=== PATIENT | male | born 1975 | race Caucasian/White ===

== ENCOUNTER 2020-08-06 09:05 | Emergency (ER) | payer OTHER, MEDICAID, SELFPAY ==
[2020-08-06 09:23] VITALS: BP 139/81; PULSE 75; RESP 18; TEMP 37.2; O2SAT 99; BMI 26.6
--- NOTE | 2020-08-06 09:35 | ED.GENADULT ---
HPI - General Adult General Chief complaint: Abdominal Pain Stated complaint: Blood in urine/saliva Time Seen by Provider: 08/06/20 09:08 Source: patient Mode of arrival: Ambulatory Limitations: no limitations History of Present Illness HPI narrative: Patient is a 45-year-old male. His transsexual. His postoperative and has had his penis removed. His here for evaluation of several weeks of abdominal discomfort. He states that it is in his upper abdomen although difficult for him to specifically isolate. No change in bowel habits. This morning he had blood tinged in his urine and last evening had blood tinged sputum. Afebrile. Does drink alcohol on a daily basis. Does not use anti-inflammatories. Has no other reflux symptoms. No problems breathing. Related Data Allergies Allergy/AdvReac Type Severity Reaction Status Date / Time No Known Drug Allergies Allergy Verified 08/06/20 09:29 Review of Systems Constitutional Constitutional: Reports system reviewed and no additional complaints, except as documented Cardiovascular Cardiovascular: Reports system reviewed and no additional complaints, except as documented Respiratory Respiratory: Reports system reviewed and no additional complaints, except as documented Gastrointestinal Gastrointestinal: Reports abdominal pain Genitourinary Genitourinary: Reports hematuria Genitourinary: Reports hematuria Musculoskeletal Musculoskeletal: Reports system reviewed and no additional complaints, except as documented Integumentary/Breasts Skin/Breast: Reports system reviewed and no additional complaints, except as documented Neurologic Neurologic: Reports system reviewed and no additional complaints, except as documented Hematologic/Lymphatic On Anticoagulants: No Allergic/Immunologic Allergic/Immunologic: Reports system reviewed and no additional complaints, except as documented Patient History Social History Smoking Status: Never smoker Smoking Status: Never smoker Substance Use Type: does not use Exam Initial Vital Signs Initial Vital Signs: Vital Signs Temperature 99 F 08/06/20 09:23 Pulse Rate 75 08/06/20 09:23 Respiratory Rate 18 08/06/20 09:23 Blood Pressure 139/81 08/06/20 09:23 Pulse Oximetry 99 08/06/20 09:23 Const General: cooperative and comfortable Limitations: mental status not altered HENMT Head: normal to inspection and normocephalic Resp Effort & Inspection: normal respiratory effort Auscultation: clear to auscultation bilaterally Cardio Rate: regular rate Rhythm: regular rhythm GI Inspection: non-distended Palpation: soft, No firm and No tender Skin Lesions: no lesions Rashes: no rashes Neuro General: patient alert and patient awake Cognition: normal cognition Speech: speech normal Extrem General: normal to inspection and capillary refill normal Psych Appearance: grossly normal and well kempt Course Vital Signs Vital signs: Vital Signs - 8 hr 08/06/20 09:23 Temperature 99 F Pulse Rate 75 Respiratory Rate 18 Blood Pressure 139/81 Pulse Oximetry 99 Medical Decision Making Lab Data Lab results reviewed: Yes I reviewed the patient's lab results. Labs: Urine Dip Bedside Urine Glucose Negative Bedside Urine Bilirubin - Negative Bedside Urine Ketone - Negative Urine Specific [place] 1.025 Bedside Urine Occult Blood - Negative Bedside Urine pH 6.0 Bedside Urine Protein - Negative Bedside Urine Urobilinogen - Negative Bedside Urine Nitrite - Negative Bedside Urine Leukocytes - Negative Esterase Point of care testing: Urine Dip Bedside Urine Glucose Negative Bedside Urine Bilirubin - Negative Bedside Urine Ketone - Negative Urine Specific [place] 1.025 Bedside Urine Occult Blood - Negative Bedside Urine pH 6.0 Bedside Urine Protein - Negative Bedside Urine Urobilinogen - Negative Bedside Urine Nitrite - Negative Bedside Urine Leukocytes - Negative Esterase ECG Data Interpretation: MDM Narrative Medical decision making narrative: Well-appearing, reassuring exam and vital signs. Urinalysis shows no signs of blood. No signs of infection, no indication for antibiotics. There is no signs of any respiratory distress. I feel we can hold on any radiologic studies for now. Tried to provide reassurance. Patient was given return precautions. Patient expressed understanding and agreement. Discharge Plan Departure Patient Disposition: Home Clinical Impression: Hematuria Instructions: DI for Hematuria Activity Restrictions/Additional Instructions: There were no signs of any blood in your urine sample today. There is no signs of any infection. There is no indication for any antibiotics. I recommend that you start on a medicine called famotidine/Pepcid. I suspect that the blood in her saliva could be related to a stomach ulcer. This could be the result of your daily drinking. Recommend that you contact your primary provider for follow-up. Return to the emergency department for any new or worsening symptoms
--- NOTE | 2020-08-06 10:25 | PC.NURSE ---
pt refused to allow examination by staff psychiatrist. refused discharge vitals.
== END 2020-08-06 10:26 | disposition home or self-care (01) ==
PROVIDERS: Emergency Provider Emergency Medicine
DX: R31.9 Hematuria, unspecified (principal); R10.9 Unspecified abdominal pain
CPT/HCPCS: 81003; 99281; 99282

== ENCOUNTER 2020-08-07 09:22 | Emergency (ER) | payer OTHER, MEDICAID, SELFPAY ==
[2020-08-07 09:32] VITALS: BP 128/87; PULSE 65; RESP 15; TEMP 37.1; O2SAT 100; BMI 26.6
--- NOTE | 2020-08-07 11:00 | ED.ABDPAIN ---
HPI - Abdominal Pain General Chief Complaint: Abdominal Pain Stated Complaint: stomach pain/cant sleep/here yesterday Time Seen by Provider: 08/07/20 10:38 Source: patient and old records reviewed Mode of arrival: Ambulatory Limitations: no limitations History of Present Illness HPI narrative: This is a 45-year-old with preferred pronouns male who comes with complaint of abdominal discomfort sort of mid superior abdomen. Patient states that does symptoms have been there for quite some time they state that they have been tapering down there coughing consumption as well as using Rolaids intermittently. Patient states that was having worse symptoms yesterday was seen. They return today as there symptoms have been worsening overnight they were unable to sleep. Patient denies any fevers or chills. Has had some nausea but no active vomiting. He states that they coughed up some trace redness the other day which encouraged him to come here at that time. They have not had any chest pain or shortness of breath. Patient states that symptoms of abdominal pain do seem to be worsened with certain foods such as chicken which they had last night. They been eating a very bland diet which is been mildly helpful. Patient has had normal bowel movements without any melena or hematochezia. Patient had noted some pinkish discoloration and urine and was seen yesterday with negative urinalysis. Patient denies any frequency, discharge, incomplete emptying or other symptoms. Patient has history surgical removal of penis about 7-8 years ago. No other additional surgeries. Does not take any other daily medications. Does not smoke. Does drink alcohol 2-3 days daily. Denies any substance abuse. Patient does live on [facility]. States they are planning to move to [place] in the next 1/2 to 2 weeks. Related Data Previous Rx's Medication Instructions Recorded sucralfate [Carafate] 1 g PO QACHS #40 tab 08/07/20 Allergies Allergy/AdvReac Type Severity Reaction Status Date / Time No Known Drug Allergies Allergy Verified 08/07/20 09:39 Review of Systems Review of Systems ROS Unobtainable: All systems reviewed & are unremarkable except as noted in HPI and below Patient History Social History Smoking Status: Never smoker Smoking Status: Never smoker alcohol intake frequency: 3 or more drinks per day Substance Use Type: does not use Exam Narrative Exam Narrative: GENERAL: Alert and oriented x three, well-appearing, mild distress. HEENT: Head normocephalic, atraumatic, EOMI, pupils reactive, face symmetric, moist mucous membranes NECK: Supple, full range of motion CARDIOVASCULAR: Regular rate and rhythm without murmurs, rubs or gallops. RESPIRATORY: Breath sounds equal bilaterally, no wheezes rales or rhonchi. ABDOMEN: Soft, patient has some mild to moderate tenderness in the superior midline. There does feel like some fullness but I cannot palpate a discrete hernia. Patient has a very small umbilical hernia on exam but is nontender to palpation. Normoactive bowel sounds all 4 quadrants. No guarding or rebound, rigidity, no mass : No CVA tenderness EXTREMITIES: Normal range of motion, no clubbing or edema. Neurovascularly intact NEUROLOGICAL: Cranial nerves II through XII grossly intact. Moving all extremities SKIN: Warm, dry, no petechiae, no rashes or lesions. Initial Vital Signs Initial Vital Signs: Vital Signs Temperature 98.7 F 08/07/20 09:32 Pulse Rate 65 08/07/20 09:32 Respiratory Rate 15 08/07/20 09:32 Blood Pressure 128/87 08/07/20 09:32 Pulse Oximetry 100 08/07/20 09:32 Course Orders Ordered: ED Orders 08/07/20 10:45 Urinalysis and Microscopic Stat 08/07/20 11:13 US abdomen complete Stat 08/07/20 12:18 Complete Blood Count AUTO DIFF Stat Comprehensive Metabolic Panel Stat Lipase Stat Discontinued Medications Pantoprazole Sodium (Pantoprazole 40 Mg Vial) 40 mg IV NOW ONE Stop: 08/07/20 11:14 Last Admin: 08/07/20 12:12 Dose: Not Given Documented by: [email or web address] Vital Signs Vital signs: Vital Signs - 8 hr 08/07/20 13:07 Pulse Rate 63 Respiratory Rate 16 Blood Pressure 136/92 H Pulse Oximetry 96 MDM - Abdominal Pain Lab Data Attestation: I reviewed the patient's lab results. Result diagrams: 08/07/20 12:18 08/07/20 12:18 Labs: Lab Results 08/07/20 08/07/20 08/07/20 Range/Units 10:45 12:18 12:18 WBC 4.5 (4.5-11.0) X10^3/uL RBC 4.91 (4.5-5.9) X10^6/uL Hgb 14.9 (13.5-17.5) g/dL Hct 42.2 (41-53) % MCV 85.9 (80-100) fL MCH 30.2 (26-34) PG MCHC 35.2 (30-36) % RDW 12.7 (11.6-14.8) % Plt Count 245 (150-400) X10^3/uL Neut % (Auto) 59.1 (50-75) % Lymph % (Auto) 31.6 (25-40) % Piatt % (Auto) 6.2 (3-14) % Eos % (Auto) 2.5 (2-4) % Baso % (Auto) 0.6 (0-2) % Neut # (Auto) 2600 (6456-1308) /uL Lymph # (Auto) 1400 (5851-0427) /uL Piatt # (Auto) 300 (0-900) /uL Eos # (Auto) 100 (0-450) /uL Baso # (Auto) 0 (0-100) /uL Sodium 136 L (137-145) mmol/L Potassium 4.1 (3.4-5.1) mmol/L Chloride 103 (98-107) mmol/L Carbon Dioxide 26 (22-32) mmol/L BUN 15 (9-20) mg/dL Creatinine 0.79 (0.66-1.25) mg/dL Estimated GFR > 60.0 (>60) mL/min BUN/Creatinine Ratio 19.0 (6-22) Glucose 96 (70-100) mg/dL Calcium 9.7 (8.4-10.2) mg/dL Total Bilirubin 1.3 (0.2-1.3) mg/dL AST 26 (17-59) IU/L ALT 17 (<50) IU/L Alkaline Phosphatase 66 (38-126) U/L Total Protein 7.2 (6.3-8.2) g/dL Albumin 4.4 (3.5-5.0) g/dL Globulin 2.8 (1.7-4.1) g/dL Albumin/Globulin Ratio 1.6 (1.0-2.8) Lipase 99 (23-300) U/L Urine Color Yellow Urine Appearance Clear Urine pH 6.0 (4.5-8.0) Ur Specific [place] 1.020 (1.000-1.035) Urine Protein Negative (Negative) Urine Glucose (UA) Negative (Negative) g/dL Urine Ketones Negative (NEGATIVE) Urine Occult Blood Trace-intact (Negative) Urine Nitrate Negative (Negative) Urine Bilirubin Negative (NEGATIVE) Urine Urobilinogen 0.2 (0.2) E.U./dL Ur Leukocyte Esterase Negative (NEGATIVE) Urine RBC None seen (0-5/HPF) Urine WBC None seen (0-5/HPF) Urine Bacteria None seen (None) Ur Culture Indicated? Cult not indicated Micro UA Comment Microscopic normal Imaging Data US - abdomen: Radiologist's Impression: Georgia Mcclure 45 M [address] [id number] ReportSigned Patient: Georgia Mcclure SMR#: [id number]: [id number]:[id number]/Sex: 45 / MDate of Service: 08/07/20Loc: EDAccession Number: [id number] Procedure: US abdomen complete Ordering Provider: Eleni Zaman D.O. PROCEDURE: US ABDOMEN COMPLETE INDICATIONS: EPIGASTRIC PAIN. LUMP SUPERIOR ABDOMEN - ?HERNIA. TECHNIQUE: Real-time scanning was performed of the abdominal and retroperitoneal organs, with image documentation. COMPARISON: None. FINDINGS: Liver: Liver is normal in size and homogeneous in echotexture. Liver measures 14.9 cm Gallbladder: Unremarkable. No sonographic Leong sign. Biliary ducts: Intrahepatic bile ducts are non-dilated. Extrahepatic bile duct caliber measures 2-4 mm. Normal is 6-7 mm or less in diameter, or 10 mm or less post-cholecystectomy. Pancreas: Visualized portions of the pancreas are sonographically normal. Spleen: Spleen is normal in size and homogeneous in echotexture. Kidneys: Kidneys are normal in size and echotexture. Right kidney measures 10.6 cm long; left kidney measures 12.1 cm long. No hydronephrosis or nephrolithiasis. No solid masses. Aorta: Visualized aorta is normal in caliber at less than 3 cm. Iliacs: Proximal common iliac arteries are normal in caliber at less than 2.5 cm. IVC: Intrahepatic inferior vena cava is patent. Miscellaneous: No free abdominal fluid. In the area of the midline epigastric area of concern, no specific sonographic evidence of hernia or mass is seen. No focal fluid collection is seen. IMPRESSION: Unremarkable examination as above. No sonographically visible hernia identified. MDM Narrative Medical decision making narrative: 45-year-old with complaint of abdominal discomfort. Patient was seen here yesterday had concern for hematuria which was negative. Was negative again today. Patient has some discomfort in the upper abdomen on my evaluation. Patient had labs that did not show any acute changes. They have had 2 days of Pepcid without any additional medications. Patient does not have any other red flag symptoms. Ultrasound findings not show any acute changes discussed with patient I would be suspicious for gastritis or ulcer. Was given additional prescription for Carafate. They are moving on the next 1-2 weeks so were given referral to General surgery or GI for scope but also encouraged to follow up in [place] as it is unlikely that the week able to set this up in that short of a time. Patient and I discussed return precautions. All questions were answered. Discharge Plan Departure Patient Disposition: Home Clinical Impression: Abdominal pain Instructions: DI for Epigastric Pain Activity Restrictions/Additional Instructions: Follow up with General surgery or Gastroenterology for recheck and possible EGD. Referral is included but if you have already moved can contact your insurance company to see who is closest to you. Continue Pepcid 40 mg daily for the next 3-4 weeks. You can try Carafate with meals and prior to sleep. This medication helps to coat the stomach so if you have gastritis or ulcer in your stomach it will help protect it and potentially make you feel more comfortable. Prescription to [facility] in [place]. Please return for fevers, severe worsening abdominal pain, lightheadedness or passing out, persistent vomiting, black or bloody stools, difficulty or inability urinate or other new or concerning symptoms. Prescriptions: New sucralfate [Carafate] 1 gram tablet 1 g PO QACHS Qty: 40 RF: 0 Referrals: Monster Butt MD [Physician] - Bayron Hunter MD [Physician] -
[2020-08-07 11:03] LABS: Bacteria Urine None Seen; RBC Urine None Seen (0-5/HPF); WBC Urine None Seen (0-5/HPF)
[2020-08-07 11:12] LABS: Appearance Urine UA CLEAR; Bilirubin Urine UA NEGATIVE (NEGATIVE); Color Urine UA YELLOW; Glucose Urine UA NEGATIVE (Negative); Ketones Urine UA NEGATIVE (NEGATIVE); Leukocyte Esterase Urine UA NEGATIVE (NEGATIVE); Nitrite Urine UA NEGATIVE (Negative); Occult Blood Urine UA TRACE-INTACT (Negative); Protein Urine UA NEGATIVE (Negative); Urobilinogen Urine UA 0.2 E.U./dL (0.2)
--- NOTE | 2020-08-07 11:13 | DI.US.S_ITS ---
PROCEDURE: US ABDOMEN COMPLETE INDICATIONS: EPIGASTRIC PAIN. LUMP SUPERIOR ABDOMEN - ?HERNIA. TECHNIQUE: Real-time scanning was performed of the abdominal and retroperitoneal organs, with image documentation. COMPARISON: None. FINDINGS: Liver: Liver is normal in size and homogeneous in echotexture. Liver measures 14.9 cm Gallbladder: Unremarkable. No sonographic Leong sign. Biliary ducts: Intrahepatic bile ducts are non-dilated. Extrahepatic bile duct caliber measures 2-4 mm. Normal is 6-7 mm or less in diameter, or 10 mm or less post-cholecystectomy. Pancreas: Visualized portions of the pancreas are sonographically normal. Spleen: Spleen is normal in size and homogeneous in echotexture. Kidneys: Kidneys are normal in size and echotexture. Right kidney measures 10.6 cm long; left kidney measures 12.1 cm long. No hydronephrosis or nephrolithiasis. No solid masses. Aorta: Visualized aorta is normal in caliber at less than 3 cm. Iliacs: Proximal common iliac arteries are normal in caliber at less than 2.5 cm. IVC: Intrahepatic inferior vena cava is patent. Miscellaneous: No free abdominal fluid. In the area of the midline epigastric area of concern, no specific sonographic evidence of hernia or mass is seen. No focal fluid collection is seen. IMPRESSION: Unremarkable examination as above. No sonographically visible hernia identified. Dictated by: Reji Chacko M.D. on 08/07/2020 at 12:23 Approved by: Reji Chacko M.D. on 08/07/2020 at 12:25
[2020-08-07 11:14] LABS: Culture Indicated Urine Cult Not Indicated; Urine Comments Microscopic Normal
[2020-08-07 12:28] LABS: Add Manual Diff / Slide Review NO; Basophils Absolute Auto 0 /uL (0-100); Basophils Percent Auto 0.6 % (0-2); Eosinophils Absolute Auto 100 /uL (0-450); Eosinophils Percent Auto 2.5 % (2-4); Hematocrit 42.2 % (41-53); Hemoglobin 14.9 g/dL (13.5-17.5); Lymphocytes Absolute Auto 1400 /uL (1100-4500); Lymphocytes Percent Auto 31.6 % (25-40); Mean Corpuscular HGB Conc 35.2 % (30-36); Mean Corpuscular Hemoglobin 30.2 PG (26-34); Mean Corpuscular Volume 85.9 fL (80-100); Monocytes Absolute Auto 300 /uL (0-900); Monocytes Percent Auto 6.2 % (3-14); Neutrophils Absolute Auto 2600 /uL (1500-7000); Neutrophils Percent Auto 59.1 % (50-75); Platelet Count 245 X10^3/uL (150-400); Red Blood Cell Count 4.91 X10^6/uL (4.5-5.9); Red Cell Distribution Width 12.7 % (11.6-14.8); White Blood Cell Count 4.5 X10^3/uL (4.5-11.0)
[2020-08-07 12:37] LABS: HEMOLYSIS < 15 (0-50); Potassium 4.1 mmol/L (3.4-5.1)
[2020-08-07 12:38] LABS: Alanine Aminotransferase 17 IU/L (<50); Albumin 4.4 g/dL (3.5-5.0); Albumin Globulin Ratio 1.6 (1.0-2.8); Alkaline Phosphatase 66 U/L (38-126); Aspartate Aminotransferase 26 IU/L (17-59); Bilirubin Total 1.3 mg/dL (0.2-1.3); Blood Urea Nitrogen 15 mg/dL (9-20); Calcium 9.7 mg/dL (8.4-10.2); Carbon Dioxide 26 mmol/L (22-32); Chloride 103 mmol/L (98-107); Estimated Glomerular Filt Rate > 60.0 mL/min (>60); Globulin 2.8 g/dL (1.7-4.1); Glucose 96 mg/dL (70-100); Lipase 99 U/L (23-300); Sodium 136 mmol/L (137-145); Total Protein 7.2 g/dL (6.3-8.2)
[2020-08-07 13:07] VITALS: BP 136/92; PULSE 63; RESP 16; O2SAT 96
== END 2020-08-07 13:11 | disposition home or self-care (01) ==
PROVIDERS: Emergency Provider Emergency Medicine
DX: R10.9 Unspecified abdominal pain (principal); R10.13 Epigastric pain
CPT/HCPCS: 36415; 76700; 80053; 81001; 83690; 85025; 99283; 99284